=== PATIENT | male | born 1950 | race Hispanic/Latino ===

== ENCOUNTER 2018-12-24 13:50 | Observation (INO) | payer BC, MEDICARE, OTHER ==
[~2018-12-24] VITALS: Ht 175.3 cm; Wt 84.4 kg
[~2018-12-24 13:50] MED LIST: BENICAR; INSULIN SQ; METFORMIN HCL500 M3 PO; Z ACTOPLUS MET PO
[2018-12-24 15:32] LABS: BASOPHILS # (AUTO) 0.1 (0.0-0.1); BASOPHILS % 0.7 % (0.0-1.0); EOSINOPHILS # (AUTO) 0.4 (0.0-0.4); EOSINOPHILS % 4.2 % (0.0-6.0); HEMATOCRIT 27.4 % (38.2-49.6); HEMOGLOBIN 8.3 g/dL (14.0-18.0); LYMPHOCYTES # (AUTO) 2.2 (1.0-3.2); LYMPHOCYTES % 26.8 % (18.0-39.1); MEAN CORPUSCULAR HEMOGLOBIN 23.4 pg (28-32); MEAN CORPUSCULAR HGB CONC 30.3 g/dL (31-35); MEAN CORPUSCULAR VOLUME 77.4 fL (81-99); MONOCYTES # (AUTO) 0.4 (0.2-0.8); MONOCYTES % 4.8 % (4.4-11.3); NEUTROPHILS # (AUTO) 5.2 (2.1-6.9); NEUTROPHILS % 63.1 % (38.7-80.0); PLATELET COUNT 292 x10e3/uL (140-360); RED BLOOD COUNT 3.54 x10e6/uL (4.3-5.7); RED CELL DISTRIBUTION WIDTH 15.4 % (11.7-14.4)
[2018-12-24 15:33] LABS: BILIRUBIN,URINE SMALL (NEGATIVE); CLARITY,URINE SL CLOUDY (CLEAR); COLOR,URINE YELLOW (YELLOW); KETONES,URINE 1+ (NEGATIVE); LEUKOCYTE ESTERASE ,URINE NEGATIVE (NEGATIVE); NITRITE,URINE NEGATIVE (NEGATIVE); PROTEIN,URINE DIPSTICK 2+ (NEGATIVE); URINE UROBILINOGEN 1 mg/dL (0.2 - 1)
[2018-12-24 15:45] LABS: AMORPHOUS SEDIMENT,URINE MODERATE (FEW); BACTERIA,URINE MANY /HPF; EPITHELIAL CELLS,URINE FEW /LPF
[2018-12-24 15:47] LABS: INR 0.97; PARTIAL THROMBOPLASTIN TIME 26.7 seconds (23.8-35.5); PROTHROMBIN TIME 13.4 seconds (11.9-14.5)
[2018-12-24 15:52] LABS: ALBUMIN 4.4 g/dL (3.5-5.0); ALBUMIN/GLOBULIN RATIO 1.1 (0.8-2.0); ANION GAP 13.3 mmol/L (8-16); CALCIUM 9.7 mg/dL (8.4-10.2); CREATININE, SERUM 1.66 mg/dL (0.72-1.25); POTASSIUM 4.3 mmol/L (3.5-5.1)
[2018-12-24] MEDS ORDERED: FUROSEMIDE INJ 10 MG/ML 2 ML VIAL IV PRN (17:45)
[2018-12-24] MEDS ORDERED: SODIUM CHLORIDE 0.9% 250ML 250 ML IV ONE (17:45)
[2018-12-24 18:04] LABS: CREATINE KINASE MB 1.4 ng/mL (0-5.0)
[2018-12-24] MEDS ORDERED: MORPHINE SULFATE 2 MG/ML SYR 1ML IV PRN (18:15)
[2018-12-24] MEDS ORDERED: ASPIRIN 81 MG CHEW TAB PO ONE (18:15)
[2018-12-24] MEDS ORDERED: MORPHINE SULFATE INJ 4 MG/ML INJ 1ML IV PRN (18:15)
[2018-12-24] MEDS ORDERED: ONDANSETRON HCL INJ 2MG/ML 2ML 2 MG/ML VIAL IV PRN (18:15)
[2018-12-24] MEDS ORDERED: DEXTROSE 50% SYRINGE 50 ML IV PRN (18:15)
[2018-12-24 18:29] LABS: FERRITIN 7.14 ng/mL (21.81-274.66)
[2018-12-24] MEDS ORDERED: HUMALOG100 UNIT/1 (18:37)
[2018-12-24] MEDS ORDERED: LINZESS PO (18:37)
[2018-12-24] MEDS ORDERED: METFORMIN HCL500 M2 PO (18:37)
[2018-12-24] MEDS ORDERED: ATORVASTATIN CA20 MG PO (18:37)
[2018-12-24] MEDS ORDERED: GABAPENTIN100 MG PO (18:37)
[2018-12-24] MEDS ORDERED: LOSARTAN POTAS100 MG PO (18:37)
[2018-12-24] MEDS ORDERED: NIACIN500 M2 PO (18:37)
[2018-12-24] MEDS ORDERED: [UNRECOGNIZED DRUG - OTHER] PO (18:37)
[2018-12-24] MEDS ORDERED: NORVASC5 MG PO (18:37)
[2018-12-24] MEDS ORDERED: LEVEMIR100 UNIT/1 (18:37)
--- NOTE | 2018-12-24 18:39 | NUR ---
NOTIFIED DANIKA LAURENT BLOOD IS READY FOR PT
[2018-12-24 18:48] LABS: FOLATE 10.3 ng/mL (7.0-15.4)
--- NOTE | 2018-12-24 19:00 | NUR ---
Received bedside shift report from day shift RN. Patient is laying on the bed, side rails up x2, call light within reach and bed set low. Patient is not in distress.
[2018-12-24 19:30] VITALS: BP 148/75
[2018-12-24 19:45] VITALS: BP 148/75
[2018-12-24] MEDS ORDERED: ACETAMINOPHEN 325 MG TAB PO PRN (19:45)
[2018-12-24] MEDS ORDERED: HYDRALAZINE HCL 20 MG/ML VIAL IV PRN (19:45)
[2018-12-24 20:11] VITALS: BP 148/75
[2018-12-24] MEDS: INSULIN REGULAR, HUMAN 100 UNIT/1 ML 3ML VIAL SQ SCH (20:18)
[2018-12-24] MEDS: GABAPENTIN 100 MG CAP PO SCH (20:22)
[2018-12-24] MEDS: SODIUM CHLORIDE 0.9% 1000ML 1,000 ML IV SCH (20:22)
[2018-12-24] MEDS: ATORVASTATIN 20 MG TAB PO SCH (20:22)
--- NOTE | 2018-12-24 21:00 | NUR ---
Spoke with KELVIN Grande regarding the patient's H/H. stated he would contact with Mitch to discuss whether to give 2 units of RBC and will call back.
[2018-12-24 23:56] VITALS: BP 153/77
[2018-12-25] VITALS (12 sets, daily range): BP systolic 136–181; BP diastolic 63–86
[2018-12-25 03:56] LABS: BASOPHILS % 0.2 % (0.0-1.0); EOSINOPHILS # (AUTO) 0.3 (0.0-0.4); EOSINOPHILS % 5.9 % (0.0-6.0); LYMPHOCYTES # (AUTO) 1.6 (1.0-3.2); LYMPHOCYTES % 38.6 % (18.0-39.1); MEAN CORPUSCULAR HEMOGLOBIN 23.1 pg (28-32); MEAN CORPUSCULAR VOLUME 76.9 fL (81-99); MONOCYTES # (AUTO) 0.3 (0.2-0.8); MONOCYTES % 7.1 % (4.4-11.3); PLATELET COUNT 198 x10e3/uL (140-360); RED BLOOD COUNT 2.99 x10e6/uL (4.3-5.7); RED CELL DISTRIBUTION WIDTH 15.4 % (11.7-14.4)
[2018-12-25 04:04] LABS: HEMOGLOBIN 6.9 g/dL (14.0-18.0)
[2018-12-25] MEDS ORDERED: SODIUM CHLORIDE 0.9% 250ML 250 ML ONE (04:16)
[2018-12-25 04:19] LABS: ALANINE AMINOTRANSFERASE 20 IU/L (0-55); ALBUMIN 3.7 g/dL (3.5-5.0); ALBUMIN/GLOBULIN RATIO 1.2 (0.8-2.0); ALKALINE PHOSPHATASE 90 IU/L (40-150); ANION GAP 11.1 mmol/L (8-16); BLOOD UREA NITROGEN 23 mg/dL (7-26); BUN/CREATININE RATIO 25 (6-25); CALCIUM 9.2 mg/dL (8.4-10.2); CARBON DIOXIDE 26 mmol/L (22-29); CHLORIDE 106 mmol/L (98-107); CREATININE, SERUM 0.92 mg/dL (0.72-1.25); EST GLOMERULAR FILTRATION RATE > 60 ML/MIN (60-); GLUCOSE 164 mg/dL (74-118); POTASSIUM 4.1 mmol/L (3.5-5.1); SODIUM 139 mmol/L (136-145)
[2018-12-25 04:39] LABS: FREE T4 (FREE THYROXINE) 0.74 ng/dL (0.9-1.8); THYROID STIMULATING HORMONE 7.262 uIU/mL (0.350-4.940)
[2018-12-25] MEDS: PANTOPRAZOLE SOD 40 MG TABEC PO SCH ×2 (05:12→07:50)
[2018-12-25] MEDS ORDERED: LEVOTHYROXINE SODIUM 50 MCG TAB PO SCH (06:45)
--- NOTE | 2018-12-25 06:45 | Diagnostic Imaging Report ---
EXAMINATION: CHEST SINGLE (PORTABLE) INDICATION: ^shortness of breath ^[id number] ^[id number] ^Y COMPARISON: None FINDINGS: AP view TUBES and LINES: None. LUNGS: Limited by body habitus and low lung volumes. Mildly elevated right hemidiaphragm. There is no evidence of pneumonia or pulmonary edema. PLEURA: No pleural effusion or pneumothorax. HEART AND MEDIASTINUM: The cardiac silhouette is mildly enlarged on this AP view. BONES AND SOFT TISSUES: No acute osseous lesion. Soft tissues are unremarkable. UPPER ABDOMEN: No free air under the diaphragm. IMPRESSION: Limited study. No acute thoracic abnormality. Signed by: Dr. Rhett Maria MD on 12/25/2018 6:41 AM
[2018-12-25] MEDS: INSULIN REGULAR, HUMAN 100 UNIT/1 ML 3ML VIAL SQ SCH ×4 (07:30→20:28)
--- NOTE | 2018-12-25 07:30 | NUR ---
The first of two units of blood has completed and the pt. tolerated the transfusion without problems. He is currently receiving iv fluid s and iv antibiotics and is pending stool specimen.
[2018-12-25] MEDS: CEFTRIAXONE SOD 1 GM/NS 50 ML 50 ML IV SCH (07:50)
[2018-12-25] MEDS: FERROUS SULFATE 325 MG TAB PO SCH ×2 (07:51→17:49)
[2018-12-25] MEDS: GABAPENTIN 100 MG CAP PO SCH ×3 (07:51→20:26)
[2018-12-25] MEDS: AMLODIPINE BESYLATE 5 MG TAB PO SCH (07:51)
[2018-12-25] MEDS: LEVOTHYROXINE SODIUM 25 MCG TABLET PO SCH (07:51)
[2018-12-25] MEDS: NIACIN 500 MG TABSR PO SCH (07:51)
[2018-12-25] MEDS: LOSARTAN POTASSIUM 100 MG TAB PO SCH (07:51)
[2018-12-25] MEDS: ASCORBIC ACID 500 MG TAB PO SCH ×2 (07:52→17:49)
[2018-12-25 07:56] LABS: CREATINE KINASE MB 1.2 ng/mL (0-5.0)
[2018-12-25] MEDS ORDERED: ASPIRIN 81 MG ENTERIC COATED PO SCH (09:00)
--- NOTE | 2018-12-25 10:29 | NUR ---
The urine spec was obtained and t the lab. Stool spec pending.
[2018-12-25 14:13] LABS: CREATINE KINASE MB 1.2 ng/mL (0-5.0)
[2018-12-25] MEDS: SODIUM CHLORIDE 0.9% 1000ML 1,000 ML IV SCH (17:49)
--- NOTE | 2018-12-25 20:19 | NUR ---
Received bedside shift report from day shift RN. Patient is A/Ox3, call light within reach, bed set low, wheels lock, and side rails up x2. Patient is not in distress.
[2018-12-25] MEDS: ATORVASTATIN 20 MG TAB PO SCH (20:26)
[2018-12-26] VITALS (8 sets, daily range): BP systolic 102–186; BP diastolic 54–94
[2018-12-26] MEDS ORDERED: IRON SUCROSE 100 MG in SODIUM CHLORIDE 0.9% 100 ML 100 ML IV SCH (05:00)
[2018-12-26] MEDS ORDERED: PEG (High)/E-LYTE SOLN 4,000 ML BTL PO ONE (05:00)
[2018-12-26] MEDS: LEVOTHYROXINE SODIUM 25 MCG TABLET PO SCH (05:18)
[2018-12-26 05:25] LABS: BASOPHILS % 0.6 % (0.0-1.0); EOSINOPHILS # (AUTO) 0.4 (0.0-0.4); EOSINOPHILS % 7.6 % (0.0-6.0); HEMATOCRIT 31.5 % (38.2-49.6); HEMOGLOBIN 9.8 g/dL (14.0-18.0); LYMPHOCYTES # (AUTO) 1.8 (1.0-3.2); LYMPHOCYTES % 36.2 % (18.0-39.1); MEAN CORPUSCULAR HEMOGLOBIN 24.1 pg (28-32); MEAN CORPUSCULAR HGB CONC 31.1 g/dL (31-35); MEAN CORPUSCULAR VOLUME 77.4 fL (81-99); MONOCYTES # (AUTO) 0.4 (0.2-0.8); MONOCYTES % 8.6 % (4.4-11.3); NEUTROPHILS # (AUTO) 2.3 (2.1-6.9); NEUTROPHILS % 46.6 % (38.7-80.0); PLATELET COUNT 233 x10e3/uL (140-360); RED BLOOD COUNT 4.07 x10e6/uL (4.3-5.7); RED CELL DISTRIBUTION WIDTH 15.5 % (11.7-14.4)
[2018-12-26 05:43] LABS: ANION GAP 13.2 mmol/L (8-16); BLOOD UREA NITROGEN 16 mg/dL (7-26); BUN/CREATININE RATIO 15 (6-25); CALCIUM 9.5 mg/dL (8.4-10.2); CARBON DIOXIDE 26 mmol/L (22-29); CHLORIDE 100 mmol/L (98-107); CREATININE, SERUM 1.08 mg/dL (0.72-1.25); EST GLOMERULAR FILTRATION RATE > 60 ML/MIN (60-); GLUCOSE 210 mg/dL (74-118); POTASSIUM 4.2 mmol/L (3.5-5.1); SODIUM 135 mmol/L (136-145)
--- NOTE | 2018-12-26 06:08 | NUR ---
Dr. Ayesha Alves recommend the patient to have a colonoscopy due to anemia with microcytic indices. The patient started on GoLitely and has made about 7-8 BM's until clear. Consent forms signed. The patient is to have the procedure today and has been NPO since midnight.
[2018-12-26] MEDS: PANTOPRAZOLE SOD 40 MG TABEC PO SCH (07:30)
[2018-12-26] MEDS: INSULIN REGULAR, HUMAN 100 UNIT/1 ML 3ML VIAL SQ SCH ×4 (07:30→21:42)
[2018-12-26] MEDS: CEFTRIAXONE SOD 1 GM/NS 50 ML 50 ML IV SCH (07:30)
[2018-12-26] MEDS: FERROUS SULFATE 325 MG TAB PO SCH ×2 (08:00→17:31)
--- NOTE | 2018-12-26 08:52 | NUR ---
Patient alert and responsive, BP elevated and medicated with hydralazine PRN, NPO orders in place and patient having a hebaclens bath at this time, will monitor.
[2018-12-26] MEDS: ASCORBIC ACID 500 MG TAB PO SCH ×2 (08:54→17:31)
[2018-12-26] MEDS: GABAPENTIN 100 MG CAP PO SCH ×3 (08:54→21:41)
[2018-12-26] MEDS: NIACIN 500 MG TABSR PO SCH (08:54)
[2018-12-26] MEDS: AMLODIPINE BESYLATE 5 MG TAB PO SCH (08:54)
[2018-12-26] MEDS: LOSARTAN POTASSIUM 100 MG TAB PO SCH (08:54)
[2018-12-26] MEDS: IRON SUCROSE 100 MG in SODIUM CHLORIDE 0.9% 100 ML 100 ML IV SCH (10:15)
--- NOTE | 2018-12-26 11:32 | NUR ---
Patient's FS 191, no coverage given at this time as NPO, notified brick picker pre-op team as patient has been picked up at this time for colonoscopy
--- NOTE | 2018-12-26 13:22 | NUR ---
Patient had colonoscopy and could not complete process per Dr. Alves due to residual in the stomach and risk of aspiration. Will flush him out again and redo the colonoscopy tomorrow.
--- NOTE | 2018-12-26 13:41 | NUR ---
Patient returned from PACU and able to complete EGD but not Colonoscopy.EGD with gastritis, Esophagitis and Blood sugar reported 181. Patient will be on clear liquid diet.
[2018-12-26] MEDS: METOCLOPRAMIDE HCL 10 MG/2ML VIAL IV SCH (17:31)
[2018-12-26] MEDS: SODIUM CHLORIDE 0.9% 1000ML 1,000 ML IV SCH (17:31)
[2018-12-26] MEDS ORDERED: CITRATE OF MAGNESIA 300ML BOTTLE PO NR ×2 (18:00→19:00)
[2018-12-26] MEDS ORDERED: PROPOFOL IV EMULSION 10 MG/ML 50 ML VIAL ONE (18:06)
[2018-12-26] MEDS ORDERED: FENTANYL CITRATE/PF 100MCG/2 ML INJ ONE (19:10)
[2018-12-26] MEDS ORDERED: MIDAZOLAM HCL 2 MG/2 ML VIAL ONE (19:10)
--- NOTE | 2018-12-26 19:21 | Operative Report ---
DATE OF PROCEDURE: 12/26/2018 SURGEON: Cam Alves MD PROCEDURE: Esophagogastroduodenoscopy with biopsy. INDICATIONS FOR EGD: Iron deficiency anemia. INDICATIONS FOR COLONOSCOPY: Iron deficiency anemia. MEDICATIONS: The patient was done under MAC, please see anesthesiologist's note. PROCEDURE IN DETAIL: With the patient in left lateral decubitus position, a flexible fiberoptic Olympus gastroscope was introduced into the esophagus under direct visualization without any difficulty. There was some patchy erythema noted in distal esophagus. The scope was then advanced with ease into the stomach and a very large amount of retained undigested food stuff was noted in the stomach precluding visualization of the fundus as well as the body of the stomach. The mucosa overlying the antrum revealed some diffuse erythema, low-grade edema and biopsies were obtained and sent to stain for H pylori. Pylorus was intubated and the scope was advanced into the second portion of the duodenum. It was then withdrawn quickly and whatever was visualized, the mucosa overlying the second portion as well as the duodenal bulb appeared to be within normal limits. The scope was subsequently withdrawn. IMPRESSION: 1. Mild distal esophagitis. 2. Large amount of retained undigested food in stomach precluding visualization of fundus and body. 3. Gastritis, antrum biopsied. PLAN: Follow up histology. The patient will need a repeat EGD after one day of clear liquids and a prokinetic agent. Colonoscopy was not done as case was canceled by anesthesia for fear of aspiration. Cam Alves MD [facility] [place]ONY /[id number] cc: Marlon Johnston MD
[2018-12-26] MEDS: ATORVASTATIN 20 MG TAB PO SCH (21:41)
[2018-12-27] VITALS (8 sets, daily range): BP systolic 116–155; BP diastolic 57–74
[2018-12-27] MEDS: METOCLOPRAMIDE HCL 10 MG/2ML VIAL IV SCH ×4 (00:28→17:30)
[2018-12-27] MEDS: LEVOTHYROXINE SODIUM 25 MCG TABLET PO SCH (06:03)
--- NOTE | 2018-12-27 06:59 | NUR ---
Bedside report and walking rounds complete with day shift RN.
--- NOTE | 2018-12-27 07:02 | NUR ---
Walking rounds done and report received. Patient is awake, alert and able to make needs known. NPO for planned colonoscopy. Per patient BM is slight brown. MD will be notified. Patient was instructed to call for assistance and verbalized understanding. Tele #[phone], SR @[phone]. Call nair within reach.
[2018-12-27] MEDS: INSULIN REGULAR, HUMAN 100 UNIT/1 ML 3ML VIAL SQ SCH ×4 (07:30→21:12)
[2018-12-27] MEDS: PANTOPRAZOLE SOD 40 MG TABEC PO SCH (07:30)
[2018-12-27] MEDS: SODIUM CHLORIDE 0.9% 1000ML 1,000 ML IV SCH (08:00)
[2018-12-27] MEDS: FERROUS SULFATE 325 MG TAB PO SCH ×2 (08:00→16:50)
[2018-12-27] MEDS: CEFTRIAXONE SOD 1 GM/NS 50 ML 50 ML IV SCH (08:10)
[2018-12-27] MEDS: LOSARTAN POTASSIUM 100 MG TAB PO SCH (08:14)
[2018-12-27] MEDS: AMLODIPINE BESYLATE 5 MG TAB PO SCH (08:15)
[2018-12-27] MEDS: GABAPENTIN 100 MG CAP PO SCH ×3 (08:15→21:12)
[2018-12-27] MEDS: ASCORBIC ACID 500 MG TAB PO SCH ×2 (08:15→16:50)
[2018-12-27] MEDS: NIACIN 500 MG TABSR PO SCH (08:15)
[2018-12-27] MEDS ORDERED: HYOSCYAMINE SULFATE 0.5 MG/ML INJ ONE ×2 (08:46→17:04)
[2018-12-27] MEDS ORDERED: CITRATE OF MAGNESIA 300ML BOTTLE PO NR (09:00)
[2018-12-27] MEDS: IRON SUCROSE 100 MG in SODIUM CHLORIDE 0.9% 100 ML 100 ML IV SCH (11:09)
--- NOTE | 2018-12-27 12:58 | NUR ---
Patient is off unit to Endo via stretcher. at bedside.
[2018-12-27] MEDS ORDERED: LIDOCAINE HCL 2% LOCAL INJ 5 ML SDV VIAL INJ ONE (17:04)
[2018-12-27] MEDS ORDERED: GLUCAGON FOR INJ 1 MG VIAL ONE (17:04)
[2018-12-27] MEDS ORDERED: EPHEDRINE SULFATE INJ 50 MG/10 ML SYR ONE (17:04)
[2018-12-27] MEDS ORDERED: PROPOFOL IV EMULSION 10 MG/ML 50 ML VIAL ONE (17:04)
[2018-12-27] MEDS ORDERED: FENTANYL CITRATE/PF 100MCG/2 ML INJ ONE (17:32)
[2018-12-27] MEDS ORDERED: MIDAZOLAM HCL 2 MG/2 ML VIAL ONE (17:32)
--- NOTE | 2018-12-27 19:10 | NUR ---
Walking rounds done and report given.
--- NOTE | 2018-12-27 19:18 | NUR ---
Bedside report and walking rounds complete. Pt resting in bed and in no apparent distress. All safety measures ensured.
[2018-12-27] MEDS: ATORVASTATIN 20 MG TAB PO SCH (21:12)
--- NOTE | 2018-12-27 23:55 | Operative Report ---
DATE OF PROCEDURE: 12/27/2018 SURGEON: Cam Alves MD PROCEDURE: EGD with biopsies and fulguration of a duodenal AVM and a colonoscopy with polypectomy and biopsies. INDICATIONS FOR EGD: Dyspepsia, anemia. INDICATIONS FOR COLONOSCOPY: Iron deficiency anemia. MEDICATIONS: The patient was done under MAC, please see anesthesiologist's note. PROCEDURE #1: With the patient in left lateral decubitus position, a flexible fiberoptic Olympus gastroscope was introduced into the esophagus under direct visualization without any difficulty. There was some patchy erythema noted in distal esophagus. The scope was then advanced with ease into the stomach. Mucosa overlying the antrum and the body revealed some patchy erythema and [id number] edema and biopsies were obtained from the body to rule out H pylori. An approximately 6 mm nodule was noted in the peripyloric area and that was biopsied. Pylorus was intubated with ease and the scope was advanced all the way to the second portion of the duodenum. Biopsies were obtained from the proximal second portion to rule out sprue. An AVM was noted in the duodenal bulb that was fulgurated with the APC probe. The scope was then withdrawn back into the stomach and retroflexed and mucosa overlying the fundus and the cardia appeared to be within normal limits. The scope was then straightened out, it was subsequently withdrawn. The patient tolerated the procedure well. IMPRESSION: 1. Mild distal esophagitis. 2. Gastritis, biopsied. Biopsies sent to stain for H pylori. 3. Approximately 6 mm nodule peripyloric area, biopsied. 4. AVM, duodenal bulb, fulgurated with APC probe. 5. Rule out sprue. PLAN: Follow up histology. Initiate Protonix 40 mg one p.o. q.a.m. a.c. PROCEDURE #2: The patient was then turned around after adequate lubrication of the anal canal, a flexible fiberoptic Olympus colonoscope was inserted into the rectum with ease and advanced all the way to the cecum. Mucosa overlying the cecum appeared to be within normal limits. The ileocecal valve was intubated and the scope was advanced into the terminal ileum. Biopsies were obtained. The scope was then withdrawn back into the colon. One minute polyp was removed per cold biopsy forceps, an additional polyp was removed per cold polypectomy snare. A large sessile polypoid lesion was noted in the hepatic flexure and that was removed piecemeal per snare electrocautery and site was tattooed and hemoclipped x3. The transverse colon appeared to be within normal limits. One polyp was snared from the descending colon. One large approximately 1 cm pedunculated polyp was removed per snare electrocautery from the sigmoid colon and that was hemoclipped and 2 additional polyps were removed, one per cold snare and the second one per cold biopsy forceps. The rectum appeared to be within normal limits. The scope was then retroflexed into the distal rectum and small internal hemorrhoids were noted, none of which was actively bleeding. The scope was then straightened out, it was subsequently withdrawn. The patient tolerated the procedure well. IMPRESSION: 1. Ascending colon polyps x2, one snared and one removed per cold biopsy forceps. 2. Large approximately 1.5 cm sessile polypoid lesion, hepatic flexure, removed per snare electrocautery and hemoclipped x3. 3. Descending colon polyp snared. 4. Sigmoid colon polyps x3, up to 1 cm in size through snared and one removed per cold biopsy forceps. 5. Small internal hemorrhoids, none actively bleeding. PLAN: Follow up histology. Initiate high-fiber, low-fat diet. Initiate high-fiber supplement. Timing of followup colonoscopy pending pathology report. MD DAR Hanna/JHONY /[id number] cc: Marlon Johnston MD
[2018-12-28] VITALS: BP 159/71
[2018-12-28] MEDS: METOCLOPRAMIDE HCL 10 MG/2ML VIAL IV SCH ×2 (00:53→06:08)
[2018-12-28 04:00] VITALS: BP 163/78
[2018-12-28 05:10] LABS: BASOPHILS % 0.4 % (0.0-1.0); EOSINOPHILS # (AUTO) 0.3 (0.0-0.4); EOSINOPHILS % 5.2 % (0.0-6.0); HEMOGLOBIN 9.2 g/dL (14.0-18.0); LYMPHOCYTES # (AUTO) 1.3 (1.0-3.2); MEAN CORPUSCULAR HEMOGLOBIN 24.1 pg (28-32); MEAN CORPUSCULAR HGB CONC 30.7 g/dL (31-35); MEAN CORPUSCULAR VOLUME 78.5 fL (81-99); MONOCYTES # (AUTO) 0.4 (0.2-0.8); MONOCYTES % 7.7 % (4.4-11.3); NEUTROPHILS # (AUTO) 2.8 (2.1-6.9); NEUTROPHILS % 59.5 % (38.7-80.0); PLATELET COUNT 203 x10e3/uL (140-360); RED BLOOD COUNT 3.82 x10e6/uL (4.3-5.7); RED CELL DISTRIBUTION WIDTH 16.1 % (11.7-14.4)
[2018-12-28] MEDS: SODIUM CHLORIDE 0.9% 1000ML 1,000 ML IV SCH (05:18)
[2018-12-28 05:34] LABS: ANION GAP 12.4 mmol/L (8-16); BLOOD UREA NITROGEN 12 mg/dL (7-26); BUN/CREATININE RATIO 14 (6-25); CALCIUM 9.1 mg/dL (8.4-10.2); CARBON DIOXIDE 24 mmol/L (22-29); CHLORIDE 108 mmol/L (98-107); CREATININE, SERUM 0.88 mg/dL (0.72-1.25); EST GLOMERULAR FILTRATION RATE > 60 ML/MIN (60-); GLUCOSE 177 mg/dL (74-118); MAGNESIUM 1.9 MG/DL (1.3-2.1); PHOSPHORUS 2.9 MG/DL (2.3-4.7); POTASSIUM 4.4 mmol/L (3.5-5.1); SODIUM 140 mmol/L (136-145)
[2018-12-28] MEDS: LEVOTHYROXINE SODIUM 25 MCG TABLET PO SCH (06:08)
[2018-12-28] MEDS ORDERED: LEVOTHYROXINE25 MCG PO (09:53)
[2018-12-28] MEDS ORDERED: ASCORBIC ACID500 MG PO (09:53)
[2018-12-28] MEDS ORDERED: PROTONIX40 MG/ML PO (09:53)
[2018-12-28] MEDS ORDERED: FERROUS SULFAT325 MG PO (09:53)
[2018-12-28 10:05] VITALS: BP 149/70
[2018-12-28] MEDS: FERROUS SULFATE 325 MG TAB PO SCH (10:11)
[2018-12-28] MEDS: PANTOPRAZOLE SOD 40 MG TABEC PO SCH (10:11)
[2018-12-28] MEDS: LOSARTAN POTASSIUM 100 MG TAB PO SCH (10:12)
[2018-12-28] MEDS: AMLODIPINE BESYLATE 5 MG TAB PO SCH (10:13)
[2018-12-28] MEDS: GABAPENTIN 100 MG CAP PO SCH (10:13)
[2018-12-28] MEDS: ASCORBIC ACID 500 MG TAB PO SCH (10:13)
[2018-12-28] MEDS: NIACIN 500 MG TABSR PO SCH (10:13)
--- NOTE | 2018-12-29 02:05 | Discharge Summary ---
ADMISSION DIAGNOSES: Acute blood loss anemia secondary to gastrointestinal bleed, hypertension, hyperlipidemia, type 2 diabetes, hypothyroidism, neuropathy, urinary tract infection. DISCHARGE DIAGNOSES: Acute blood loss anemia secondary to gastrointestinal bleed, hypertension, hyperlipidemia, type 2 diabetes, hypothyroidism, neuropathy, urinary tract infection, esophagitis, gastritis. HISTORY: The patient has a history of PAD, type 2 diabetes, hypertension, hyperlipidemia, neuropathy, chronic constipation. SURGICAL HISTORY: Right eye cataract surgery. FAMILY HISTORY: The patient's mom, dad, brother and sister have diabetes. The patient's mom had cancer. The patient's grandma had a stroke. SOCIAL HISTORY: Noncontributory. HOSPITAL COURSE: A 68-year-old male had blood work done on at his PCP and his hemoglobin was found to be 7.3, so he was sent to the ER. He says he has had intermittent weakness and shortness of breath for about 1 to 2 years. He denies nausea, vomiting, diarrhea, abdominal pain, and he is unaware of the color of his stool. On admission, the patient's hemoglobin was 7.3, which dropped to 6.9. He was given two PRBCs, started on iron, vitamin C and Protonix. GI was consulted. The patient's TSH was also elevated, so he was started on levothyroxine. The patient had an EGD on 12/26 with esophagitis and gastritis finding. He then had a colonoscopy, which showed ascending colon polyps x2, one snared and one removed for biopsy, large approximately 1.5 cm polypoid lesion removed, and small internal hemorrhoids none actively bleeding. The patient's hemoglobin is stable at 9.2, and he is tolerating diet. He will discharge home with vitamin C, ascorbic acid, Protonix, and levothyroxine. He was instructed to follow up with Dr. Alves and his primary care in 1 to 2 weeks. The patient understands discharge instructions and agrees to plan. Dictated by Rena Meyer NP MD MARY Carr/JHONY /[id number]
== END 2018-12-28 10:20 | disposition home or self-care (01) ==
LOC: ER 13:50 → ERHOLD 18:08 → IMCU 18:35
PROVIDERS: ADMIT Internal Medicine; ATTEND Internal Medicine
DX: K55.21 Angiodysplasia of colon with hemorrhage (principal); K20.9 Esophagitis, unspecified; K29.70 Gastritis, unspecified, without bleeding; N39.0 Urinary tract infection, site not specified; K31.89 Other diseases of stomach and duodenum; K63.5 Polyp of colon; K64.8 Other hemorrhoids; R53.1 Weakness; D62 Acute posthemorrhagic anemia; D50.9 Iron deficiency anemia, unspecified; I10 Essential (primary) hypertension; E78.5 Hyperlipidemia, unspecified; K59.09 Other constipation; Z83.3 Family history of diabetes mellitus; Z82.49 Family history of ischemic heart disease and other diseases of the circulatory system; E11.42 Type 2 diabetes mellitus with diabetic polyneuropathy; E11.51 Type 2 diabetes mellitus with diabetic peripheral angiopathy without gangrene; E03.9 Hypothyroidism, unspecified; Z79.4 Long term (current) use of insulin
CPT/HCPCS: 36415 ×5; 36430; 43239 ×2; 43255; 45380; 45385; 71045; 80048 ×2; 80053 ×2; 81001; 82270; 82550 ×2; 82553 ×2; 82607; 82728; 82746; 82948 ×5; 83036; 83540; 83735; 84100; 84439; 84443; 84466; 84484 ×2; 85025 ×4; 85610; 85730; 86850; 86900; 86920; 87086; 88305 ×2; 88312 ×2; 93005; 97161; 99284; G0378 ×5; J0360; J0696 ×4; J1610; J1756; J1817; J1980; J2001; J2250 ×2; J2704 ×2; J2765 ×3; J7030 ×4; J7050; P9016; S0164 ×3; 43270; 45378; 45381; 45384

== ENCOUNTER 2020-08-06 11:24 | Inpatient (IN) | payer MEDICARE, OTHER ==
[~2020-08-06] VITALS: Ht 175.3 cm; Wt 78.9 kg
[~2020-08-06 11:24] MED LIST changes: +ASCORBIC ACID500 MG PO; +ATORVASTATIN CA20 MG PO; +FERROUS SULFAT325 MG PO; +GABAPENTIN100 MG PO; +HUMALOG100 UNIT/1; +LEVEMIR100 UNIT/1; +LEVOTHYROXINE25 MCG PO; +LINZESS PO; +LOSARTAN POTAS100 MG PO; +METFORMIN HCL500 M2 PO; +NIACIN500 M2 PO; +NORVASC5 MG PO; +PROTONIX40 MG/ML PO; +[UNRECOGNIZED DRUG - OTHER] PO
[2020-08-06 11:43] LABS: BASOPHILS % 0.6 % (0.0-1.0); EOSINOPHILS # (AUTO) 0.3 (0.0-0.4); EOSINOPHILS % 4.1 % (0.0-6.0); HEMATOCRIT 33.5 % (38.2-49.6); LYMPHOCYTES # (AUTO) 1.4 (1.0-3.2); LYMPHOCYTES % 21.3 % (18.0-39.1); MEAN CORPUSCULAR HEMOGLOBIN 30.4 pg (28-32); MEAN CORPUSCULAR HGB CONC 32.8 g/dL (31-35); MEAN CORPUSCULAR VOLUME 92.5 fL (81-99); MONOCYTES # (AUTO) 0.5 (0.2-0.8); NEUTROPHILS # (AUTO) 4.3 (2.1-6.9); PLATELET COUNT 494 x10e3/uL (140-360); RED BLOOD COUNT 3.62 x10e6/uL (4.3-5.7)
[2020-08-06 12:05] LABS: ALANINE AMINOTRANSFERASE 85 IU/L (0-55); ALBUMIN 2.8 g/dL (3.5-5.0); ALBUMIN/GLOBULIN RATIO 0.5 (0.8-2.0); ALKALINE PHOSPHATASE 80 IU/L (40-150); ANION GAP 14.1 mmol/L (8-16); BLOOD UREA NITROGEN 19 mg/dL (7-26); BUN/CREATININE RATIO 20 (6-25); CALCIUM 8.8 mg/dL (8.4-10.2); CARBON DIOXIDE 25 mmol/L (22-29); CHLORIDE 104 mmol/L (98-107); CREATININE, SERUM 0.97 mg/dL (0.72-1.25); EST GLOMERULAR FILTRATION RATE > 60 ML/MIN (60-); GLUCOSE 100 mg/dL (74-118); POTASSIUM 4.1 mmol/L (3.5-5.1); SODIUM 139 mmol/L (136-145)
[2020-08-06 15:11] VITALS: BP 151/67
[2020-08-06 15:37] VITALS: BP 151/67
[2020-08-06] MEDS ORDERED: ACETAMINOPHEN 325 MG TAB PO PRN (16:30)
[2020-08-06] MEDS ORDERED: DEXTROSE 50% SYRINGE 50 ML IV PRN (16:45)
[2020-08-06 16:57] VITALS: BP 151/67
[2020-08-06] MEDS ORDERED: AZITHROMYCIN 500MG/NS 250 ML 250 ML IV SCH (17:30)
[2020-08-06] MEDS: ASCORBIC ACID 500 MG TAB PO SCH (18:18)
[2020-08-06] MEDS: FERROUS SULFATE 325 MG TAB PO SCH (18:18)
[2020-08-06] MEDS: ENOXAPARIN SOD INJ 40 MG/0.4 ML SYR SC SCH (18:18)
[2020-08-06] MEDS: CEFTRIAXONE SOD 1 GM/NS 50 ML 50 ML IV SCH (18:18)
[2020-08-06] MEDS ORDERED: SODIUM CHLORIDE 0.9% 250ML 250 ML ONE (18:25)
[2020-08-06] MEDS ORDERED: ONDANSETRON HCL INJ 2MG/ML 2ML 2 MG/ML VIAL IV PRN (19:45)
[2020-08-06] MEDS ORDERED: TEMAZEPAM 7.5 MG CAP PO PRN (19:45)
[2020-08-06] MEDS ORDERED: POLYETHYLENE GLYCOL 3350 17 GM PACK PO PRN (19:45)
[2020-08-06 20:02] VITALS: BP 137/66
[2020-08-06] MEDS ORDERED: ZOLPIDEM TARTRATE 5 MG TAB PO PRN (21:00)
[2020-08-06 21:10] VITALS: BP 137/66
[2020-08-06] MEDS: ATORVASTATIN 20 MG TAB PO SCH (22:46)
[2020-08-06] MEDS: DEXAMETHASONE 4 MG TAB PO SCH (22:46)
[2020-08-06] MEDS: AZITHROMYCIN 500MG/NS 250 ML 250 ML IV SCH (22:46)
[2020-08-06] MEDS: GABAPENTIN 100 MG CAP PO SCH (22:46)
[2020-08-06] MEDS: INSULIN REGULAR, HUMAN 100 UNIT/1 ML 3ML VIAL SQ SCH (23:25)
[2020-08-07] VITALS (8 sets, daily range): BP systolic 135–168; BP diastolic 66–82
[2020-08-07] MEDS: HYDRALAZINE HCL 20 MG/ML VIAL IV PRN (05:48)
[2020-08-07] MEDS: LEVOTHYROXINE SODIUM 25 MCG TABLET PO SCH (05:48)
[2020-08-07 05:55] LABS: BASOPHILS % 0.2 % (0.0-1.0); EOSINOPHILS % 0.7 % (0.0-6.0); HEMATOCRIT 30.7 % (38.2-49.6); HEMOGLOBIN 10.1 g/dL (14.0-18.0); LYMPHOCYTES # (AUTO) 0.8 (1.0-3.2); LYMPHOCYTES % 18.3 % (18.0-39.1); MEAN CORPUSCULAR HEMOGLOBIN 30.4 pg (28-32); MEAN CORPUSCULAR HGB CONC 32.9 g/dL (31-35); MEAN CORPUSCULAR VOLUME 92.5 fL (81-99); MONOCYTES # (AUTO) 0.1 (0.2-0.8); NEUTROPHILS # (AUTO) 3.3 (2.1-6.9); NEUTROPHILS % 76.2 % (38.7-80.0); PLATELET COUNT 393 x10e3/uL (140-360); RED BLOOD COUNT 3.32 x10e6/uL (4.3-5.7); RED CELL DISTRIBUTION WIDTH 12.1 % (11.7-14.4)
[2020-08-07 06:20] LABS: ALANINE AMINOTRANSFERASE 61 IU/L (0-55); ALBUMIN 2.5 g/dL (3.5-5.0); ALBUMIN/GLOBULIN RATIO 0.5 (0.8-2.0); ALKALINE PHOSPHATASE 77 IU/L (40-150); ANION GAP 11.6 mmol/L (8-16); BLOOD UREA NITROGEN 16 mg/dL (7-26); BUN/CREATININE RATIO 21 (6-25); CALCIUM 8.5 mg/dL (8.4-10.2); CARBON DIOXIDE 26 mmol/L (22-29); CHLORIDE 105 mmol/L (98-107); CHOL/HDL RATIO 5.6 (3.9-4.7); CHOLESTEROL 84 MD/DL (0-199); CREATININE, SERUM 0.77 mg/dL (0.72-1.25); EST GLOMERULAR FILTRATION RATE > 60 ML/MIN (60-); GLUCOSE 225 mg/dL (74-118); HDL CHOLESTEROL 15 MG/DL (40-60); LDL CHOLESTEROL 41 MG/DL (60-130); MAGNESIUM 1.9 MG/DL (1.3-2.1); PHOSPHORUS 2.8 MG/DL (2.3-4.7); POTASSIUM 4.6 mmol/L (3.5-5.1); SODIUM 138 mmol/L (136-145); TRIGLYCERIDES 141 MG/DL (0-149)
[2020-08-07 06:50] LABS: THYROID STIMULATING HORMONE 1.431 uIU/mL (0.350-4.940)
[2020-08-07] MEDS: PANTOPRAZOLE SOD 40 MG TABEC PO SCH (07:40)
[2020-08-07] MEDS: GABAPENTIN 100 MG CAP PO SCH ×3 (10:24→21:17)
[2020-08-07] MEDS: ZINC SULFATE 220 MG CAP PO SCH (10:24)
[2020-08-07] MEDS: FERROUS SULFATE 325 MG TAB PO SCH ×2 (10:24→18:28)
[2020-08-07] MEDS: ASCORBIC ACID 500 MG TAB PO SCH ×2 (10:24→18:28)
[2020-08-07] MEDS: CHOLECALCIFEROL 400 UNIT TAB PO SCH (10:24)
[2020-08-07] MEDS: DOCUSATE SODIUM 100 MG CAP PO SCH ×2 (10:24→18:28)
[2020-08-07] MEDS ORDERED: METFORMIN HCL500 MG PO (10:58)
[2020-08-07] MEDS ORDERED: LEVOTHYROXINE50 MCG PO (10:58)
[2020-08-07] MEDS: INSULIN REGULAR, HUMAN 100 UNIT/1 ML 3ML VIAL SQ SCH ×4 (11:57→21:00)
[2020-08-07] MEDS ORDERED: REMDESIVIR 200MG/NS 100ML 200 MG in SODIUM CHLORIDE 0.9% 100 ML 100 ML IV ONE (12:00)
[2020-08-07] MEDS: CEFTRIAXONE SOD 1 GM/NS 50 ML 50 ML IV SCH (18:28)
[2020-08-07] MEDS: ENOXAPARIN SOD INJ 40 MG/0.4 ML SYR SC SCH (18:28)
[2020-08-07] MEDS ORDERED: DEXTROSE 50% SYRINGE 50 ML IV PRN (18:30)
[2020-08-07] MEDS ORDERED: TEMAZEPAM 15 MG CAP PO PRN (21:00)
[2020-08-07] MEDS: INSULIN GLARGINE 100 UNITS/ML VIAL SQ SCH (21:00)
[2020-08-07] MEDS: AZITHROMYCIN 500MG/NS 250 ML 250 ML IV SCH (21:03)
[2020-08-07] MEDS: ATORVASTATIN 20 MG TAB PO SCH (21:17)
[2020-08-07] MEDS: DEXAMETHASONE 4 MG TAB PO SCH (21:17)
[2020-08-08] VITALS (7 sets, daily range): BP systolic 130–169; BP diastolic 62–83
[2020-08-08] MEDS: LEVOTHYROXINE SODIUM 25 MCG TABLET PO SCH (05:27)
[2020-08-08] MEDS: HYDRALAZINE HCL 20 MG/ML VIAL IV PRN (05:42)
[2020-08-08 06:52] LABS: BASOPHILS % 0.2 % (0.0-1.0); HEMATOCRIT 30.2 % (38.2-49.6); LYMPHOCYTES # (AUTO) 0.9 (1.0-3.2); LYMPHOCYTES % 17.5 % (18.0-39.1); MEAN CORPUSCULAR HEMOGLOBIN 30.9 pg (28-32); MEAN CORPUSCULAR HGB CONC 33.1 g/dL (31-35); MEAN CORPUSCULAR VOLUME 93.2 fL (81-99); MONOCYTES # (AUTO) 0.2 (0.2-0.8); MONOCYTES % 3.2 % (4.4-11.3); NEUTROPHILS # (AUTO) 3.9 (2.1-6.9); NEUTROPHILS % 77.7 % (38.7-80.0); PLATELET COUNT 423 x10e3/uL (140-360); RED BLOOD COUNT 3.24 x10e6/uL (4.3-5.7); RED CELL DISTRIBUTION WIDTH 11.9 % (11.7-14.4)
[2020-08-08 07:14] LABS: ANION GAP 10.6 mmol/L (8-16); BLOOD UREA NITROGEN 17 mg/dL (7-26); BUN/CREATININE RATIO 21 (6-25); CALCIUM 8.5 mg/dL (8.4-10.2); CARBON DIOXIDE 26 mmol/L (22-29); CHLORIDE 104 mmol/L (98-107); EST GLOMERULAR FILTRATION RATE > 60 ML/MIN (60-); GLUCOSE 354 mg/dL (74-118); POTASSIUM 4.6 mmol/L (3.5-5.1); SODIUM 136 mmol/L (136-145)
[2020-08-08] MEDS: FERROUS SULFATE 325 MG TAB PO SCH ×2 (08:00→18:10)
[2020-08-08] MEDS: ZINC SULFATE 220 MG CAP PO SCH (09:55)
[2020-08-08] MEDS: CHOLECALCIFEROL 400 UNIT TAB PO SCH (09:55)
[2020-08-08] MEDS: GABAPENTIN 100 MG CAP PO SCH ×3 (09:55→20:50)
[2020-08-08] MEDS: PANTOPRAZOLE SOD 40 MG TABEC PO SCH (09:55)
[2020-08-08] MEDS: DOCUSATE SODIUM 100 MG CAP PO SCH ×2 (09:55→18:10)
[2020-08-08] MEDS: ASCORBIC ACID 500 MG TAB PO SCH ×2 (09:55→18:10)
[2020-08-08] MEDS: INSULIN GLARGINE 100 UNITS/ML VIAL SQ SCH ×2 (10:03→20:50)
[2020-08-08] MEDS: INSULIN REGULAR, HUMAN 100 UNIT/1 ML 3ML VIAL SQ SCH ×2 (10:04→12:16)
[2020-08-08] MEDS ORDERED: DEXTROSE 50% SYRINGE 50 ML IV PRN (13:00)
[2020-08-08] MEDS: REMDESIVIR 100MG/NS 100ML 100 MG in SODIUM CHLORIDE 0.9% 100 ML 100 ML IV SCH (14:29)
[2020-08-08] MEDS: INSULIN LISPRO 100 UNIT/1 ML 3ML VIAL SQ SCH ×2 (17:57→20:50)
[2020-08-08] MEDS: ENOXAPARIN SOD INJ 40 MG/0.4 ML SYR SC SCH (18:10)
[2020-08-08] MEDS: CEFTRIAXONE SOD 1 GM/NS 50 ML 50 ML IV SCH (18:10)
[2020-08-08] MEDS: AZITHROMYCIN 500MG/NS 250 ML 250 ML IV SCH (20:50)
[2020-08-08] MEDS: DEXAMETHASONE 4 MG TAB PO SCH (20:50)
[2020-08-08] MEDS: ATORVASTATIN 20 MG TAB PO SCH (20:50)
[2020-08-09] VITALS (7 sets, daily range): BP systolic 119–175; BP diastolic 64–78
[2020-08-09] MEDS: LEVOTHYROXINE SODIUM 25 MCG TABLET PO SCH (05:54)
[2020-08-09 06:35] LABS: HEMATOCRIT 31.6 % (38.2-49.6); HEMOGLOBIN 10.2 g/dL (14.0-18.0); LYMPHOCYTES % 17.1 % (18.0-39.1); MEAN CORPUSCULAR HGB CONC 32.3 g/dL (31-35); MEAN CORPUSCULAR VOLUME 92.9 fL (81-99); MONOCYTES # (AUTO) 0.2 (0.2-0.8); MONOCYTES % 3.7 % (4.4-11.3); NEUTROPHILS # (AUTO) 4.5 (2.1-6.9); PLATELET COUNT 415 x10e3/uL (140-360)
[2020-08-09 07:00] LABS: ANION GAP 11.8 mmol/L (8-16); BLOOD UREA NITROGEN 23 mg/dL (7-26); BUN/CREATININE RATIO 26 (6-25); CALCIUM 8.7 mg/dL (8.4-10.2); CARBON DIOXIDE 26 mmol/L (22-29); CHLORIDE 102 mmol/L (98-107); CREATININE, SERUM 0.88 mg/dL (0.72-1.25); EST GLOMERULAR FILTRATION RATE > 60 ML/MIN (60-); GLUCOSE 344 mg/dL (74-118); POTASSIUM 4.8 mmol/L (3.5-5.1); SODIUM 135 mmol/L (136-145)
[2020-08-09] MEDS: DOCUSATE SODIUM 100 MG CAP PO SCH ×2 (08:17→17:00)
[2020-08-09] MEDS: ZINC SULFATE 220 MG CAP PO SCH (08:17)
[2020-08-09] MEDS: PANTOPRAZOLE SOD 40 MG TABEC PO SCH (08:17)
[2020-08-09] MEDS: CHOLECALCIFEROL 400 UNIT TAB PO SCH (08:17)
[2020-08-09] MEDS: ASCORBIC ACID 500 MG TAB PO SCH ×2 (08:17→17:35)
[2020-08-09] MEDS: GABAPENTIN 100 MG CAP PO SCH ×3 (08:17→21:01)
[2020-08-09] MEDS: FERROUS SULFATE 325 MG TAB PO SCH ×2 (08:17→17:35)
[2020-08-09] MEDS: INSULIN GLARGINE 100 UNITS/ML VIAL SQ SCH ×2 (13:39→21:51)
[2020-08-09] MEDS: INSULIN LISPRO 100 UNIT/1 ML 3ML VIAL SQ SCH ×4 (13:39→21:00)
[2020-08-09] MEDS: REMDESIVIR 100MG/NS 100ML 100 MG in SODIUM CHLORIDE 0.9% 100 ML 100 ML IV SCH (16:16)
[2020-08-09] MEDS: ENOXAPARIN SOD INJ 40 MG/0.4 ML SYR SC SCH (17:35)
[2020-08-09] MEDS: CEFTRIAXONE SOD 1 GM/NS 50 ML 50 ML IV SCH (17:35)
[2020-08-09] MEDS: DEXAMETHASONE 4 MG TAB PO SCH (21:01)
[2020-08-09] MEDS: ATORVASTATIN 20 MG TAB PO SCH (21:01)
[2020-08-09] MEDS: AZITHROMYCIN 500MG/NS 250 ML 250 ML IV SCH (21:01)
[2020-08-10 00:36] VITALS: BP 127/61
[2020-08-10 05:30] VITALS: BP 160/74
[2020-08-10] MEDS: LEVOTHYROXINE SODIUM 25 MCG TABLET PO SCH (05:40)
[2020-08-10] MEDS: INSULIN LISPRO 100 UNIT/1 ML 3ML VIAL SQ SCH ×3 (07:30→16:30)
[2020-08-10] MEDS: PANTOPRAZOLE SOD 40 MG TABEC PO SCH (08:30)
[2020-08-10] MEDS: FERROUS SULFATE 325 MG TAB PO SCH ×2 (08:30→17:28)
[2020-08-10 08:40] VITALS: BP 179/78
[2020-08-10] MEDS: INSULIN GLARGINE 100 UNITS/ML VIAL SQ SCH (09:00)
[2020-08-10] MEDS: ZINC SULFATE 220 MG CAP PO SCH (09:33)
[2020-08-10] MEDS: CHOLECALCIFEROL 400 UNIT TAB PO SCH (09:33)
[2020-08-10] MEDS: GABAPENTIN 100 MG CAP PO SCH ×2 (09:33→15:35)
[2020-08-10] MEDS: ASCORBIC ACID 500 MG TAB PO SCH ×2 (09:33→17:28)
[2020-08-10] MEDS: DOCUSATE SODIUM 100 MG CAP PO SCH ×2 (09:33→17:28)
[2020-08-10 09:46] VITALS: BP 179/78
[2020-08-10 12:34] VITALS: BP 156/76
[2020-08-10] MEDS: REMDESIVIR 100MG/NS 100ML 100 MG in SODIUM CHLORIDE 0.9% 100 ML 100 ML IV SCH (14:19)
[2020-08-10 16:33] VITALS: BP 148/72
[2020-08-10] MEDS: CEFTRIAXONE SOD 1 GM/NS 50 ML 50 ML IV SCH (16:45)
[2020-08-10] MEDS: ENOXAPARIN SOD INJ 40 MG/0.4 ML SYR SC SCH (17:28)
== END 2020-08-10 18:06 | disposition home or self-care (01) | DRG 177 ==
LOC: ER 11:27 → MED/SURG3 12:44 → ER 15:01
PROVIDERS: ADMIT Internal Medicine; ATTEND Internal Medicine
PROC: 8E0ZXY6 Isolation (ICD-10-PCS; principal; 2020-08-06)
PROC: XW033E5 Introduction of Remdesivir Anti-infective into Peripheral Vein, Percutaneous Approach, New Technology Group 5 (ICD-10-PCS; 2020-08-07)
DX: U07.1 COVID-19 (principal); J12.82 Pneumonia due to coronavirus disease 2019; J96.90 Respiratory failure, unspecified, unspecified whether with hypoxia or hypercapnia; E11.9 Type 2 diabetes mellitus without complications; I10 Essential (primary) hypertension
CPT/HCPCS: 36415; 71045; 80048; 80053; 80061; 82948; 83036; 83735; 84100; 84443; 85025; 96372; 99284; J0360; J0456; J0696; J1650; J1815; J1817; J7050; U0002

== ENCOUNTER 2024-06-26 16:01 | Inpatient (IN) | payer MEDICARE ==
[~2024-06-26] VITALS: Ht 175.3 cm; Wt 78.9 kg
[~2024-06-26 16:01] MED LIST changes: +LEVOTHYROXINE50 MCG PO; +METFORMIN HCL500 MG PO
[2024-06-26 16:20] VITALS: TEMP 98.1
[2024-06-26 16:38] LABS: BASOPHILS % 0.7 % (0.0-1.0); EOSINOPHILS # (AUTO) 0.2 (0.0-0.4); HEMATOCRIT 32.7 % (38.2-49.6); HEMOGLOBIN 10.5 g/dL (14.0-18.0); LYMPHOCYTES # (AUTO) 1.6 (1.0-3.2); LYMPHOCYTES % 35.4 % (18.0-39.1); MEAN CORPUSCULAR HGB CONC 32.1 g/dL (31-35); MEAN CORPUSCULAR VOLUME 96.5 fL (81-99); MONOCYTES # (AUTO) 0.4 (0.2-0.8); MONOCYTES % 8.1 % (4.4-11.3); NEUTROPHILS # (AUTO) 2.2 (2.1-6.9); NEUTROPHILS % 50.3 % (38.7-80.0); PLATELET COUNT 154 x10e3/uL (140-360); RED BLOOD COUNT 3.39 x10e6/uL (4.3-5.7); RED CELL DISTRIBUTION WIDTH 12.6 % (11.7-14.4); WHITE BLOOD COUNT 4.44 x10e3/uL (4.8-10.8)
[2024-06-26 16:58] LABS: ALBUMIN 4.3 g/dL (3.5-5.0); ALBUMIN/GLOBULIN RATIO 1.2 (0.8-2.0); ANION GAP 16.3 mmol/L (8-16); BILIRUBIN,TOTAL 0.4 mg/dL (0.2-1.2); CALCIUM 9.6 mg/dL (8.4-10.2); POTASSIUM 4.3 mmol/L (3.5-5.1)
[2024-06-26 17:12] LABS: CREATININE, SERUM 1.51 mg/dL (0.72-1.25)
[2024-06-26] MEDS ORDERED: SODIUM CHLORIDE FLUSH 10 ML SYR INJ PRN (17:30)
[2024-06-26] MEDS ORDERED: ONDANSETRON HCL INJ 2MG/ML 2ML 2 MG/ML VIAL IV PRN (17:30)
[2024-06-26] MEDS: Vancomycin IV 1 GM in SODIUM CHLORIDE 0.9% 250ML 250 ML IV ONE (17:48)
[2024-06-26 19:59] VITALS: PULSE 84; RESP 16
[2024-06-26 20:27] VITALS: BP 126/65; PULSE 84; RESP 17; TEMP 97.7; O2SAT 100
[2024-06-26 20:30] VITALS: BP 134/53; PULSE 84; RESP 17; TEMP 97.7; O2SAT 100
[2024-06-26] MEDS ORDERED: NOVOLOG100 UNIT/1 SC (21:32)
[2024-06-26] MEDS ORDERED: BASAGLAR K100 UNIT/1 (21:32)
[2024-06-26] MEDS ORDERED: BRIMONIDINE TART5 ML OP (21:32)
[2024-06-26] MEDS ORDERED: LATANOPROST2.5 ML OP (21:32)
[2024-06-26] MEDS ORDERED: AMLODIPINE BESYL5 MG PO (21:32)
[2024-06-26] MEDS ORDERED: FOLIC ACID0.4 MG PO (21:32)
[2024-06-26] MEDS ORDERED: ASPIRIN81 MG PO (21:32)
[2024-06-26] MEDS ORDERED: ROSUVASTATIN CA20 MG (21:32)
[2024-06-26] MEDS ORDERED: REVATIO20 MG PO (21:32)
[2024-06-26] MEDS ORDERED: ROPINIROLE HCL1 MG PO (21:32)
[2024-06-26] MEDS ORDERED: FLOMAX0.4 MG PO (21:32)
[2024-06-27] VITALS (8 sets, daily range): BP systolic 128–150; BP diastolic 63–76; PULSE 69–89; RESP 17–19; TEMP 97.3–98.5; O2SAT 99–100
[2024-06-27] MEDS ORDERED: DEXTROSE 50% SYRINGE 50 ML IV PRN (02:30)
[2024-06-27] MEDS ORDERED: HYDRALAZINE HCL 20 MG/ML VIAL IV PRN (02:30)
[2024-06-27] MEDS ORDERED: MAGNESIUM/ALUMINUM/SIMETHICONE 30 ML UDC PO PRN (02:30)
[2024-06-27] MEDS ORDERED: ACETAMINOPHEN 325 MG TAB PO PRN (02:30)
[2024-06-27] MEDS ORDERED: MELATONIN 3 MG TAB PO PRN (02:30)
[2024-06-27] MEDS ORDERED: GUAIFENESIN/DEXTROMETHORPHAN LIQD 5 ML UDC PO PRN (02:30)
[2024-06-27] MEDS ORDERED: POLYETHYLENE GLYCOL 3350 17 GM PACK PO PRN (02:30)
[2024-06-27] MEDS: LACTATED RINGER'S 1,000 ML INJ SCH (05:15)
[2024-06-27 05:37] LABS: BASOPHILS % 0.6 % (0.0-1.0); EOSINOPHILS # (AUTO) 0.2 (0.0-0.4); EOSINOPHILS % 6.2 % (0.0-6.0); HEMATOCRIT 30.8 % (38.2-49.6); HEMOGLOBIN 9.7 g/dL (14.0-18.0); LYMPHOCYTES # (AUTO) 1.3 (1.0-3.2); LYMPHOCYTES % 36.9 % (18.0-39.1); MEAN CORPUSCULAR HEMOGLOBIN 30.9 pg (28-32); MEAN CORPUSCULAR HGB CONC 31.5 g/dL (31-35); MEAN CORPUSCULAR VOLUME 98.1 fL (81-99); MONOCYTES # (AUTO) 0.3 (0.2-0.8); MONOCYTES % 8.3 % (4.4-11.3); NEUTROPHILS # (AUTO) 1.6 (2.1-6.9); NEUTROPHILS % 47.7 % (38.7-80.0); PLATELET COUNT 127 x10e3/uL (140-360); RED BLOOD COUNT 3.14 x10e6/uL (4.3-5.7); RED CELL DISTRIBUTION WIDTH 12.6 % (11.7-14.4); WHITE BLOOD COUNT 3.39 x10e3/uL (4.8-10.8)
[2024-06-27 05:59] LABS: ALBUMIN 3.6 g/dL (3.5-5.0); ANION GAP 15.1 mmol/L (8-16); BILIRUBIN,TOTAL 0.4 mg/dL (0.2-1.2); CREATININE, SERUM 1.16 mg/dL (0.72-1.25); POTASSIUM 4.1 mmol/L (3.5-5.1); TOTAL PROTEIN 7.2 g/dL (6.5-8.1)
[2024-06-27 06:54] LABS: FERRITIN 46.71 ng/mL (21.81-274.66)
[2024-06-27] MEDS: INSULIN REGULAR, HUMAN 100 UNIT/1 ML SQ SCH (07:30)
[2024-06-27] MEDS: INSULIN GLARGINE 100 UNITS/ML VIAL SQ SCH (09:00)
[2024-06-27] MEDS: DOCUSATE SODIUM 100 MG CAP PO SCH (09:00)
[2024-06-27] MEDS: GABAPENTIN 100 MG CAP PO SCH (09:44)
[2024-06-27] MEDS: AMLODIPINE BESYLATE 5 MG TAB PO SCH (09:44)
[2024-06-27] MEDS: MULTIVITAMINS/MINERALS TAB PO SCH (09:44)
[2024-06-27] MEDS: ASPIRIN 81 MG CHEW TAB PO SCH (09:44)
[2024-06-27] MEDS: BRIMONIDINE TARTRATE (OPTH) 5 ML LIQD OP SCH (12:31)
[2024-06-27] MEDS: Vancomycin IV 1 GM in SODIUM CHLORIDE 0.9% 250ML 250 ML IV SCH (17:32)
[2024-06-27] MEDS: LATANOPROST(OPTH) 2.5 ML BTL OP SCH (21:00)
[2024-06-27] MEDS: CRESTOR 10MG PO SCH (21:03)
[2024-06-27] MEDS: ROPINIROLE HCL 1 MG TAB PO SCH (21:03)
[2024-06-27] MEDS: TAMSULOSIN HCL 0.4 MG CAP PO SCH (21:03)
[2024-06-28 00:15] VITALS: BP 137/68; PULSE 80; RESP 18; TEMP 97.8; O2SAT 99
[2024-06-28 04:45] VITALS: BP 131/70; PULSE 71; RESP 18; TEMP 97.8; O2SAT 100
[2024-06-28 08:00] VITALS: BP 124/66; PULSE 63; RESP 17; TEMP 98; O2SAT 100
[2024-06-28] MEDS: INSULIN GLARGINE 100 UNITS/ML VIAL SQ SCH (09:00)
[2024-06-28] MEDS ORDERED: LEVOFLOXACIN500 MG PO (11:41)
[2024-06-28 12:24] VITALS: BP 134/69; PULSE 61; RESP 18; TEMP 97.9; O2SAT 100
== END 2024-06-28 12:30 | disposition home or self-care (01) | DRG 638 ==
LOC: ER 16:11 → ERHOLD 17:28 → MED/SURG 20:28
PROVIDERS: ADMIT Internal Medicine Critical Care Medicine; ATTEND Internal Medicine Critical Care Medicine
DX: E11.621 Type 2 diabetes mellitus with foot ulcer (principal); L03.115 Cellulitis of right lower limb; L97.518 Non-pressure chronic ulcer of other part of right foot with other specified severity; D63.8 Anemia in other chronic diseases classified elsewhere; E11.42 Type 2 diabetes mellitus with diabetic polyneuropathy; I10 Essential (primary) hypertension; E78.5 Hyperlipidemia, unspecified; K59.09 Other constipation; M19.071 Primary osteoarthritis, right ankle and foot; Z79.4 Long term (current) use of insulin; Z79.84 Long term (current) use of oral hypoglycemic drugs; Z79.890 Hormone replacement therapy
CPT/HCPCS: 36415; 80053; 82728; 82948; 83036; 83540; 84466; 85025; 87040; 93925; 99252; 99284; J2543; J7050